=== PATIENT | male | born 1940 | race Caucasian/White ===

== ENCOUNTER 2017-09-13 03:33 | Emergency (ER) | payer MEDICARE, OTHER ==
[2017-09-13] MEDS ORDERED: Iopamidol 612 MG/ML 75 ML Bottle IVPUSH ONE (03:42)
[2017-09-13] MEDS ORDERED: Piperacillin/Tazobactam 3.375 GM in Sodium Chloride 0.9% 100 ML IV ONE (04:00)
[2017-09-13] MEDS ORDERED: Sodium Chloride 0.9% 1,000 ML IV SCH (04:15)
[2017-09-13 04:27] LABS: BASE EXCESS ARTERIAL -5 mmol/L ((-2)-(+3)); BICARBONATE,ARTERIAL 16.9 mmol/L (22-26); O2 DELIVERY DEVICE NON REBR MASK; O2 SATURATION ARTERIAL 96 % (95-100); PCO2 ARTERIAL 24 mmHg (35-45); PO2 ARTERIAL 69 mmHg (70-100)
[2017-09-13] MEDS ORDERED: Norepinephrine 4 MG in Dextrose 5% in Water 246 ML IV SCH ×2 (04:30)
--- NOTE | 2017-09-13 04:42 | EDM.PDOC ---
ED HPI GENERAL MEDICAL PROBLEM - General Chief Complaint: General Stated Complaint: IN BY AMBULANCE Time Seen by Provider: 09/13/17 03:40 Source of Information: Reports: EMS, Family History Limitations: Reports: No Limitations - History of Present Illness INITIAL COMMENTS - FREE TEXT/NARRATIVE: ED via [facility], report fever difficulty to arouse, incontinent stool. notes weak since seen in ED. Apparently had fallen out of bed to carpeted floor around 530pm and neighbor came over to assist in getting patient back to bed. - Related Data Allergies Allergy/AdvReac Type Severity Reaction Status Date / Time No Known Allergies Allergy Verified 09/13/17 04:53 Home Meds: Home Meds Amitriptyline [Elavil] 30 mg PO DAILY 09/13/17 [History] ClonazePAM [KlonoPIN] 0.5 mg PO DAILY 09/13/17 [History] Hydrochlorothiazide 25 mg PO DAILY 09/13/17 [History] Morphine Sulfate 30 mg PO BID 09/13/17 [History] atorvaSTATin [Lipitor] 20 mg PO DAILY 09/13/17 [History] Past Medical History Gastrointestinal History: Reports: Bowel Obstruction Musculoskeletal History: Reports: Back Pain, Chronic Social & Family History - Tobacco Use Smoking Status *Q: Never Smoker - Caffeine Use Caffeine Use: Reports: None - Recreational Drug Use Recreational Drug Use: No ED ROS GENERAL - Review of Systems Review Of Systems: See Below (ROS obtained from ) Constitutional: Reports: Fever, Decreased Appetite HEENT: Reports: No Symptoms Respiratory: Reports: No Symptoms Cardiovascular: Reports: No Symptoms GI/Abdominal: Reports: Constipation (Patient seen in [place] ED Friday and given Magnesium Citrate), Stool Incontinence Skin: Reports: No Symptoms Neurological: Reports: Other (altered mental status, lethargic, opens eyes to stimuli, slowed responses, speech thick. ) ED EXAM, GENERAL - Physical Exam Exam: See Below Exam Limited By: No Limitations General Appearance: Lethargic Eye Exam: Bilateral Eye: EOMI, PERRL (5) Ears: Normal External Exam, Normal TMs Nose: Normal Inspection Throat/Mouth: Other (dry) Head: Atraumatic, Normocephalic Neck: Normal Inspection. No: Tender Lateral, Tender Midline Respiratory/Chest: No Respiratory Distress, Lungs Clear Cardiovascular: Normal Peripheral Pulses, Regular Rate, Rhythm, Tachycardia GI/Abdominal: Normal Bowel Sounds, Soft, Other (incontinent large amount brown stool). No: Distended Extremities: Other (distal cool) Neurological: Slow to Respond (lethargic). No: Alert Skin Exam: Warm, Dry, Pallor Course - Vital Signs Last Recorded V/S: Last Vital Signs Temp 99.4 F 09/13/17 04:51 Pulse 123 H 09/13/17 04:51 Resp 35 H 09/13/17 04:51 BP 115/53 L 09/13/17 04:51 Pulse Ox 95 09/13/17 04:51 - Orders/Labs/Meds Orders: Active Orders 24 hr Category Date Time Status Glucose [Blood Glucose Check, Bedside] [RC] ONETIME Care 09/13/17 04:19 Active CULTURE BLOOD [BC] Stat Lab 09/13/17 04:00 Results CULTURE BLOOD [BC] Stat Lab 09/13/17 04:28 Results Blood Culture x2 Reflex Set [OM.PC] Stat Oth 09/13/17 03:38 Ordered Labs: Laboratory Tests 09/13/17 09/13/17 09/13/17 Range/Units 04:00 04:00 04:00 WBC 13.6 H (5.0-10.0) 10^3/uL RBC 5.10 (4.6-6.2) 10^6/uL Hgb 14.4 (14.0-18.0) g/dL Hct 43.6 (40.0-54.0) % MCV 85.5 (80-100) fL MCH 28.2 (27.0-34.0) pg MCHC 33.0 (33.0-35.0) g/dL Plt Count 79 L (150-450) 10^3/uL Neut % (Auto) 90.0 H (42.2-75.2) % Lymph % (Auto) 5.0 L (20.5-50.1) % [place] % (Auto) 4.8 (2-8) % Eos % (Auto) 0.1 L (1.0-3.0) % Baso % (Auto) 0.1 (0.0-1.0) % Add Manual Diff Yes Neutrophils % (Manual) 83 H (42-75) % Band Neutrophils % 8 % Lymphocytes % (Manual) 5 L (20-50) % Monocytes % (Manual) 4 (2-8) % ABG pH (7.35-7.45) ABG pCO2 (35-45) mmHg ABG pO2 (70-100) mmHg ABG HCO3 (22-26) mmol/L ABG O2 Saturation (95-100) % ABG Base Excess ((-2)-(+3)) mmol/L O2 Delivery Device Sodium 131 L (135-145) mmol/L Potassium 3.0 L (3.6-5.0) mmol/L Chloride 94 L (101-111) mmol/L Carbon Dioxide 18.0 L (21.0-31.0) mmol/L Anion Gap 22.0 BUN 37 H (7-18) mg/dL Creatinine 2.2 H (0.6-1.3) mg/dL Est Cr Clr Drug Dosing 28.57 mL/min Estimated GFR (MDRD) 29 BUN/Creatinine Ratio 16.81 Glucose 174 H (74-105) mg/dL POC Glucose (83-110) mg/dl Lactic Acid 9.0 H (0.5-2.2) mmol/L Calcium 8.5 (8.4-10.2) mg/dl Magnesium 1.7 L (1.8-2.5) mg/dL Total Bilirubin 1.3 H (0.2-1.0) mg/dL AST 77 H (10-42) IU/L ALT 32 (10-60) IU/L Alkaline Phosphatase 349 H (42-121) IU/L Troponin I 0.28 H* (0.00-0.02) ng/ml Total Protein 5.8 L (6.7-8.2) g/dl Albumin 2.7 L (3.2-5.5) g/dl Globulin 3.1 Albumin/Globulin Ratio 0.87 Amylase 21 L (28-100) U/L Lipase 6 L (22-51) U/L Urine Color (YELLOW) Urine Appearance (CLEAR) Urine pH (5.0-9.0) Ur Specific [place] (1.005-1.030) Urine Protein (NEGATIVE) Urine Glucose (UA) (NEGATIVE) Urine Ketones (NEGATIVE) Urine Occult Blood (NEGATIVE) Urine Nitrite (NEGATIVE) Urine Bilirubin (NEGATIVE) Urine Urobilinogen (0.2-1.0) mg/dL Ur Leukocyte Esterase (NEGATIVE) Urine RBC /HPF Urine WBC (0-5/HPF) /HPF Ur Epithelial Cells /HPF Amorphous Sediment (0/HPF) /HPF Urine Bacteria (0-FEW/HPF) /HPF 09/13/17 09/13/17 09/13/17 Range/Units 04:04 04:16 04:23 WBC (5.0-10.0) 10^3/uL RBC (4.6-6.2) 10^6/uL Hgb (14.0-18.0) g/dL Hct (40.0-54.0) % MCV (80-100) fL MCH (27.0-34.0) pg MCHC (33.0-35.0) g/dL Plt Count (150-450) 10^3/uL Neut % (Auto) (42.2-75.2) % Lymph % (Auto) (20.5-50.1) % [place] % (Auto) (2-8) % Eos % (Auto) (1.0-3.0) % Baso % (Auto) (0.0-1.0) % Add Manual Diff Neutrophils % (Manual) (42-75) % Band Neutrophils % % Lymphocytes % (Manual) (20-50) % Monocytes % (Manual) (2-8) % ABG pH 7.46 H (7.35-7.45) ABG pCO2 24 L (35-45) mmHg ABG pO2 69 L (70-100) mmHg ABG HCO3 16.9 L (22-26) mmol/L ABG O2 Saturation 96 (95-100) % ABG Base Excess -5 L ((-2)-(+3)) mmol/L O2 Delivery Device Non rebr mask Sodium (135-145) mmol/L Potassium (3.6-5.0) mmol/L Chloride (101-111) mmol/L Carbon Dioxide (21.0-31.0) mmol/L Anion Gap BUN (7-18) mg/dL Creatinine (0.6-1.3) mg/dL Est Cr Clr Drug Dosing mL/min Estimated GFR (MDRD) BUN/Creatinine Ratio Glucose (74-105) mg/dL POC Glucose 185 H (83-110) mg/dl Lactic Acid (0.5-2.2) mmol/L Calcium (8.4-10.2) mg/dl Magnesium (1.8-2.5) mg/dL Total Bilirubin (0.2-1.0) mg/dL AST (10-42) IU/L ALT (10-60) IU/L Alkaline Phosphatase (42-121) IU/L Troponin I (0.00-0.02) ng/ml Total Protein (6.7-8.2) g/dl Albumin (3.2-5.5) g/dl Globulin Albumin/Globulin Ratio Amylase (28-100) U/L Lipase (22-51) U/L Urine Color Dark yellow (YELLOW) Urine Appearance Cloudy (CLEAR) Urine pH 5.0 (5.0-9.0) Ur Specific [place] 1.020 (1.005-1.030) Urine Protein >=300 H (NEGATIVE) Urine Glucose (UA) 250 H (NEGATIVE) Urine Ketones Trace H (NEGATIVE) Urine Occult Blood Moderate H (NEGATIVE) Urine Nitrite Negative (NEGATIVE) Urine Bilirubin Small H (NEGATIVE) Urine Urobilinogen 1.0 (0.2-1.0) mg/dL Ur Leukocyte Esterase Negative (NEGATIVE) Urine RBC 5-10 H /HPF Urine WBC 0-5 (0-5/HPF) /HPF Ur Epithelial Cells Rare /HPF Amorphous Sediment Moderate (0/HPF) /HPF Urine Bacteria Few (0-FEW/HPF) /HPF Meds: Medications Discontinued Medications Generic Name Dose Route Start Last Admin Trade Name Freq PRN Reason Stop Dose Admin Piperacillin Sod/Tazobactam 100 mls @ 200 mls/hr 09/13/17 04:00 09/13/17 04: 26 Sod 3.375 gm/ Sodium Chloride IV 09/13/17 04:29 200 mls/hr ONETIME ONE Administration Sodium Chloride 1,000 mls @ 999 mls/hr 09/13/17 04:15 09/13/17 04:25 Normal Saline IV 09/17/17 04:18 999 mls/hr ASDIRECTED PINA Administration Norepinephrine Bitartrate 4 mg 250 mls @ 7.5 mls/hr 09/13/17 04:30 / Dextrose/Water IV TITRATE PINA Protocol 2 MCG/MIN Iopamidol 75 ml 09/13/17 03:42 Isovue-300 (61%) IVPUSH 09/13/17 03:43 ONETIME ONE - Re-Assessments/Exams Free Text/Narrative Re-Assessment/Exam: 09/14/17 04:04 Increased arousal with fluids, talking. Hypotension improving also with fluids, Shallow respiration. O@ saturation improved with ear probe. O2 able to decrease to nasal cannula mainaining greather than 94% on 4L [facility], accepting of patient in transfer . [facility] here. Free Text/Narrative Re-Assessment/Exam: 09/13/17 05:22 Patient awake talking, looking around room, tracking. States "feeling better" . Packaged for transfer via [facility]. O@ at 4l/NC sats 96%. BP 99 systolic. Patient status improved at time of tx. . Departure - Departure Time of Disposition: 05:39 Disposition: DC/Tfer to Acute Hospital 02 Condition: Critical Clinical Impression: Sepsis Pneumonia Qualifiers: Pneumonia type: due to unspecified organism Laterality: right Lung location: lower lobe of lung Qualified Code(s): J18.1 - Lobar pneumonia, unspecified organism - Discharge Information Referrals: Aracelis Majano, [facility] [Primary Care Provider] - Forms: ED Department Discharge - My Orders Last 24 Hours: My Active Orders 09/13/17 03:38 Blood Culture x2 Reflex Set [OM.PC] Stat 09/13/17 04:00 CULTURE BLOOD [BC] Stat 09/13/17 04:19 Glucose [Blood Glucose Check, Bedside] [RC] ONETIME 09/13/17 04:28 CULTURE BLOOD [BC] Stat - Assessment/Plan Last 24 Hours: My Active Orders 09/13/17 03:38 Blood Culture x2 Reflex Set [OM.PC] Stat 09/13/17 04:00 CULTURE BLOOD [BC] Stat 09/13/17 04:19 Glucose [Blood Glucose Check, Bedside] [RC] ONETIME 09/13/17 04:28 CULTURE BLOOD [BC] Stat
== END 2017-09-13 05:36 ==
LOC: DL.ED 03:33
DX: A41.9 Sepsis, unspecified organism (principal); J18.9 Pneumonia, unspecified organism; Z79.899 Other long term (current) drug therapy
CPT/HCPCS: 36415; 36600; 71045; 80053; 81001; 82150; 82272; 82803; 82962; 83605; 83690; 83735; 84484; 85025; 87040; 96365; 99285; J2543; J7030; J7050; 87077; 87186

== ENCOUNTER 2021-02-07 08:16 | Day surgery (SDC) | payer MEDICARE, OTHER ==
[2021-02-07] MEDS ORDERED: Midazolam 1 MG/ML 2 ML SDV IV ONE (08:17)
[2021-02-07] MEDS ORDERED: Dexamethasone 4 MG/ML SDV IV ONE (08:17)
[2021-02-07] MEDS ORDERED: Sodium Chloride 0.9% 10 ML Syringe IV ONE (08:17)
[2021-02-07] MEDS ORDERED: Acetaminophen 325 MG Tab PO PRN (08:30)
[2021-02-07] MEDS ORDERED: Ondansetron 4 MG/2 ML SDV IVPUSH PRN (08:30)
[2021-02-07] MEDS ORDERED: Acetaminophen/Codeine 300-30 MG Tab PO PRN (08:30)
[2021-02-07] MEDS: Proparacaine 0.5% Ophth Soln 15 ML Bottle EYELF ONE (08:50)
[2021-02-07] MEDS: Povidone-Iodine 5% Sterile Ophth Soln 30 ML Bottle EYELF ONE ×2 (08:51→09:42)
[2021-02-07] MEDS: Moxifloxacin 0.5% Ophth Soln 3 ML Bottle EYELF ONE (08:52)
[2021-02-07] MEDS: Tropicamide 1% Ophth Soln 15 ML Bottle EYELF ONE (08:53)
[2021-02-07] MEDS: Phenylephrine 10% Ophth Soln 5 ML Bot EYELF ONE (08:53)
[2021-02-07] MEDS: Timolol Maleate 0.5% Ophth Soln 5 ML Bottle EYELF ONE (08:54)
[2021-02-07] MEDS: Cataract Ophth Solution EYELF ONE (08:55)
[2021-02-07] MEDS: Sodium Chloride 0.9% 10 ML Syringe FLUSH PRN (09:18)
[2021-02-07] MEDS: Tetracaine HCl/PF 0.5% 4 ML Bottle EYELF ONE (09:41)
[2021-02-07] MEDS: Lidocaine 1% 30 ML SDV ONE (09:41)
[2021-02-07] MEDS: Dexamethasone/Neomycin/Polymyxin B Ophth Oint 3.5 GM Tube EYELF ONE (09:42)
[2021-02-07] MEDS: Apraclonidine 0.5% Ophth Soln 5 ML Bot EYELF ONE (09:42)
[2021-02-07] MEDS: Chondroitin Sulfate/Hyaluronate Sodium Ophth Inj 0.75 ML Syringe EYELF ONE (09:42)
[2021-02-07] MEDS: Balanced Salt Solution Ophth Irrig 500 ML Bottle IOCULAR ONE (09:42)
[2021-02-07] MEDS: Diclofenac Sodium 0.1% Ophth Soln 5 ML Bottle EYELF ONE (09:42)
[2021-02-07] MEDS: Vancomycin 500 MG SDV EYELF ONE (09:43)
--- NOTE | 2021-02-07 13:38 | OR ---
DATE: 02/07/2021 PREOPERATIVE DIAGNOSIS: Visually significant mixed cataract, left eye. POSTOPERATIVE DIAGNOSIS: Visually significant mixed cataract, left eye. PROCEDURE: Extracapsular cataract extraction with intraocular lens implant, left eye. ANESTHESIA: Topical/local MAC. COMPLICATIONS: None. INDICATION: Mr. Xiong was seen in the clinic. He has complained of a slow progressive decrease in vision. The examination revealed visually significant mixed cataract. I explained options, offered cataract surgery, and I explained risks, including, but not limited to, infection; retinal detachment; loss of vision; need for additional surgery; and risks associated with anesthesia amongst others. We discussed implant options. He has requested a monofocal implant. He is comfortable wearing glasses following surgery if necessary. Voiced understanding with respect to risks, limitations, and wished to proceed. OPERATIVE DESCRIPTION: After informed consent was obtained and the risks, benefits, and alternatives were explained, the patient was brought to the operative suite and topical anesthesia was administered. The patient was then prepped and draped in the sterile fashion and attention was placed on the left eye. A sterile lid speculum was placed into the left eye to allow operative exposure. A full-thickness paracentesis was made in the temporal portion of the operative eye. Preservative-free lidocaine 0.1 mL was injected into the anterior chamber followed by viscoelastic. A full-thickness corneal incision was then made into the anterior chamber. A bent needle cystotome was used to create a small eleazar in the anterior capsule. The capsulorrhexis forceps was then used to create a 360-degree curvilinear capsulorrhexis. The nucleus was then removed using a phacoemulsification handpiece and the remaining cortical material was then removed with irrigation and aspiration handpiece. Following removal of the cortical material, the capsular bag was then inspected and noted to be free of any holes or tears. Viscoelastic was then injected into the capsular bag and the intraocular lens was inserted into the capsular bag. The viscoelastic material was then removed from both the anterior and posterior chambers and from behind the IOL. The lens and capsular bag were then reinspected. The IOL was well centered and the capsular bag intact. The wound and paracentesis sites were inspected and hydrated with balanced saline solution. Both were found to be self- sealing. The intraocular pressure was assessed digitally and found to be within normal range. A good red reflex was noted at the completion of the procedure. No complications occurred during the operation. At the completion of the procedure, Maxitrol, Voltaren, and Iopidine drops were placed into the operative eye. A sterile eye shield was placed over the operative eye and the patient was transported to the postoperative recovery area having tolerated the procedure well. Postoperative instructions were given along with a postoperative appointment. The patient was advised to call with any questions or concerns. [facility] /[id number]
== END 2021-02-07 10:50 | disposition home or self-care (01) ==
LOC: DL.SDS 08:16
PROVIDERS: ATTEND Ophthalmology
DX: H26.8 Other specified cataract (principal); I10 Essential (primary) hypertension; E78.2 Mixed hyperlipidemia; G25.81 Restless legs syndrome; M54.9 Dorsalgia, unspecified; G89.29 Other chronic pain; F32.9 Major depressive disorder, single episode, unspecified; F43.21 Adjustment disorder with depressed mood; E83.42 Hypomagnesemia; E66.9 Obesity, unspecified; Z68.28 Body mass index [BMI] 28.0-28.9, adult; Z79.891 Long term (current) use of opiate analgesic
CPT/HCPCS: 00142; A9270-GY; J1100; J2250; J3370; V2632

== ENCOUNTER 2021-02-14 06:30 | Day surgery (SDC) | payer MEDICARE, OTHER ==
[~2021-02-14 06:30] MED LIST: Acetaminophen 325 MG Tab PO PRN; Acetaminophen/Codeine 300-30 MG Tab PO PRN; Cataract Ophth Solution EYERT ONE; Moxifloxacin 0.5% Ophth Soln 3 ML Bottle EYERT ONE; Ondansetron 4 MG/2 ML SDV IVPUSH PRN; Phenylephrine 10% Ophth Soln 5 ML Bot EYERT ONE; Povidone-Iodine 5% Sterile Ophth Soln 30 ML Bottle EYERT ONE; Proparacaine 0.5% Ophth Soln 15 ML Bottle EYERT ONE; Sodium Chloride 0.9% 10 ML Syringe FLUSH PRN; Timolol Maleate 0.5% Ophth Soln 5 ML Bottle EYERT ONE; Tropicamide 1% Ophth Soln 15 ML Bottle EYERT ONE
[2021-02-14] MEDS ORDERED: Sodium Chloride 0.9% 10 ML Syringe IV ONE (06:31)
[2021-02-14] MEDS ORDERED: Midazolam 1 MG/ML 2 ML SDV IV ONE (06:31)
[2021-02-14] MEDS ORDERED: Dexamethasone 4 MG/ML SDV IV ONE (06:31)
[2021-02-14] MEDS ORDERED: Lidocaine 1% 30 ML SDV ONE (08:08)
[2021-02-14] MEDS ORDERED: Tetracaine HCl/PF 0.5% 4 ML Bottle EYERT ONE (08:08)
[2021-02-14] MEDS ORDERED: Dexamethasone/Neomycin/Polymyxin B Ophth Oint 3.5 GM Tube EYERT ONE (08:09)
[2021-02-14] MEDS ORDERED: Vancomycin 500 MG SDV EYERT ONE (08:09)
[2021-02-14] MEDS ORDERED: Diclofenac Sodium 0.1% Ophth Soln 5 ML Bottle EYERT ONE (08:09)
[2021-02-14] MEDS ORDERED: Apraclonidine 0.5% Ophth Soln 5 ML Bot EYERT ONE (08:09)
[2021-02-14] MEDS ORDERED: Povidone-Iodine 5% Sterile Ophth Soln 30 ML Bottle EYERT ONE (08:09)
[2021-02-14] MEDS ORDERED: Balanced Salt Solution Ophth Irrig 500 ML Bottle IOCULAR ONE (08:09)
[2021-02-14] MEDS ORDERED: Chondroitin Sulfate/Hyaluronate Sodium Ophth Inj 0.75 ML Syringe EYERT ONE (08:10)
--- NOTE | 2021-02-14 09:19 | OR ---
DATE: 02/14/2021 PREOPERATIVE DIAGNOSIS: Visually significant mixed cataract, right eye. POSTOPERATIVE DIAGNOSIS: Visually significant mixed cataract, right eye. PROCEDURE: Extracapsular cataract extraction with intraocular lens implant, right eye. ANESTHESIA: Topical/local MAC. COMPLICATIONS: None. INDICATION: Mr. Xiong was seen in the clinic. He is unhappy with his vision, noticing a progressive change. He saw his regular breadman, Dr. Lopez. Dr. Lopez was not able to improve his vision with the change in glasses. He has difficulty reading, difficulty seeing small print. Examination reveals mixed cataract. I explained the options, offered cataract surgery, and I explained the risks, including, but not limited to, infection; retinal detachment; loss of vision; need for additional surgery; and risks associated with anesthesia. We discussed implant options. He has requested a monofocal implant. I did explain that he may still require glasses for some activities, especially near work. He voiced understanding and wished to proceed. OPERATIVE DESCRIPTION: After informed consent was obtained and the risks, benefits, and alternatives were explained, the patient was brought to the operative suite and topical anesthesia was administered. The patient was then prepped and draped in the sterile fashion and attention was placed on the right eye. A sterile lid speculum was placed into the right eye to allow operative exposure. A full-thickness paracentesis was made in the temporal portion of the operative eye. Preservative-free lidocaine 0.1 mL was injected into the anterior chamber followed by viscoelastic. A full-thickness corneal incision was then made into the anterior chamber. A bent needle cystotome was used to create a small eleazar in the anterior capsule. The capsulorrhexis forceps was then used to create a 360-degree curvilinear capsulorrhexis. The nucleus was then removed using a phacoemulsification handpiece and the remaining cortical material was then removed with irrigation and aspiration handpiece. Following removal of the cortical material, the capsular bag was then inspected and noted to be free of any holes or tears. Viscoelastic was then injected into the capsular bag and the intraocular lens was inserted into the capsular bag. The viscoelastic material was then removed from both the anterior and posterior chambers and from behind the IOL. The lens and capsular bag were then reinspected. The IOL was well centered and the capsular bag intact. The wound and paracentesis sites were inspected and hydrated with balanced saline solution. Both were found to be self- sealing. The intraocular pressure was assessed digitally and found to be within normal range. A good red reflex was noted at the completion of the procedure. No complications occurred during the operation. At the completion of the procedure, Maxitrol, Voltaren, and Iopidine drops were placed into the operative eye. A sterile eye shield was placed over the operative eye and the patient was transported to the postoperative recovery area having tolerated the procedure well. Postoperative instructions were given along with a postoperative appointment. The patient was advised to call with any questions or concerns. [facility] /[id number]
== END 2021-02-14 09:15 | disposition home or self-care (01) ==
LOC: DL.SDS 06:30
PROVIDERS: ATTEND Ophthalmology
DX: H26.8 Other specified cataract (principal); G89.29 Other chronic pain; M54.5 Low back pain; E78.2 Mixed hyperlipidemia; E83.42 Hypomagnesemia; G47.00 Insomnia, unspecified; G25.81 Restless legs syndrome; F32.9 Major depressive disorder, single episode, unspecified; F43.21 Adjustment disorder with depressed mood; Z79.891 Long term (current) use of opiate analgesic; Z87.891 Personal history of nicotine dependence
CPT/HCPCS: 00142; A9270-GY; J1100; J2250; J3370; V2632

== ENCOUNTER 2024-03-11 17:49 | Inpatient (IN) | payer MEDICARE, OTHER ==
[2024-03-11] MEDS: Iopamidol 612 MG/ML 100 ML Bottle IVPUSH ONE (18:05)
[2024-03-11] MEDS: Ondansetron 4 MG/2 ML SDV IVPUSH ONE (18:43)
[2024-03-11] MEDS: Sodium Chloride 0.9% 1,000 ML IV ONE (18:43)
[2024-03-11 19:28] LABS: LACTIC ACID 1.6 mmol/L (0.4-2.0); MAGNESIUM 1.5 mg/dL (1.8-2.4)
[2024-03-11 19:54] LABS: APPEARANCE,URINE CLEAR (CLEAR); BILIRUBIN,URINE NEGATIVE (NEGATIVE); COLOR,URINE YELLOW (YELLOW); GLUCOSE,URINE 100 (NEGATIVE); KETONES,URINE 15 (NEGATIVE); LEUKOCYTE ESTERASE,URINE NEGATIVE (NEGATIVE); NITRITE,URINE NEGATIVE (NEGATIVE); OCCULT BLOOD,URINE NEGATIVE (NEGATIVE); PH,URINE 7.5 (5.0-9.0); PROTEIN,URINE 30 (NEGATIVE); UROBILINOGEN,URINE 0.2 mg/dL (0.2-1.0)
[2024-03-11] MEDS: Metoclopramide 10 MG/2 ML SDV IVPUSH ONE (20:00)
[2024-03-11 20:05] LABS: BACTERIA,URINE FEW /HPF (0-FEW/HPF); EPITHELIAL CELLS,URINE RARE /HPF (NOT SEEN); MUCUS,URINE FEW /LPF (NOT SEEN); RBC,URINE 0-5 /HPF (0-5); WBC,URINE 0-5 /HPF (0-5/HPF)
[2024-03-11] MEDS: Morphine 4 MG/ML Syringe IVPUSH PRN (20:57)
[2024-03-11] MEDS: Dextrose 5%-0.9% NaCl 1,000 ML IV SCH (21:05)
[2024-03-11] MEDS ORDERED: Docusate Sodium 100 MG Cap PO PRN (21:13)
[2024-03-11] MEDS ORDERED: hydrALAZINE 20 MG/ML SDV IVPUSH PRN (21:17)
[2024-03-11] MEDS: Pantoprazole 40 MG Vial IVPUSH SCH (21:44)
[2024-03-11] MEDS: Morphine 2 MG/ML SYRINGE IVPUSH PRN (21:44)
[2024-03-11 21:48] LABS: HEMATOCRIT 40.4 % (40.0-54.0); HEMOGLOBIN 13.3 g/dL (14.0-18.0); MEAN CORPUSCULAR HEMOGLOBIN 28.7 pg (27.0-34.0); MEAN CORPUSCULAR HGB CONC 32.9 g/dL (33.0-35.0); MEAN CORPUSCULAR VOLUME 87.3 fL (80-100); RED BLOOD CELL COUNT 4.63 10^6/uL (4.6-6.2); WHITE BLOOD CELL COUNT,WBC 22.8 10^3/uL (5.0-10.0)
[2024-03-11 22:02] LABS: ANION GAP 9.8 mEq/L (7-13); CALCIUM 8.7 mg/dL (8.5-10.1); CREATININE 0.8 mg/dL (0.70-1.30); EST CRCL DRUG DOSING (CG) 64.21 mL/min; POTASSIUM,K 2.8 mmol/L (3.5-5.1)
[2024-03-11] MEDS: diphenhydrAMINE 50 MG/ML SDV IM PRN (22:41)
[2024-03-12] MEDS: HYDROmorphone 1 MG/ML Syringe IVPUSH PRN (00:05)
[2024-03-12] MEDS: oxyCODONE 5 MG Tab PO PRN (00:26)
[2024-03-12] MEDS: Enoxaparin 40 MG/0.4 ML Syringe SUBCUT SCH (09:14)
[2024-03-12] MEDS: Ondansetron 4 MG/2 ML SDV IVPUSH PRN (13:47)
[2024-03-12] MEDS: diphenhydrAMINE 25 MG Tab PO PRN (21:46)
[2024-03-13] MEDS: Hydrochlorothiazide 25 MG Tab PO SCH (08:47)
[2024-03-13 16:36] LABS: HEMATOCRIT 38.1 % (40.0-54.0); HEMOGLOBIN 12.5 g/dL (14.0-18.0); MEAN CORPUSCULAR HEMOGLOBIN 28.9 pg (27.0-34.0); MEAN CORPUSCULAR HGB CONC 32.8 g/dL (33.0-35.0); RED BLOOD CELL COUNT 4.33 10^6/uL (4.6-6.2); WHITE BLOOD CELL COUNT,WBC 15.6 10^3/uL (5.0-10.0)
[2024-03-13 16:51] LABS: EST CRCL DRUG DOSING (CG) 51.37 mL/min
[2024-03-13] MEDS: HYDROmorphone 2 MG Tab PO PRN (19:03)
[2024-03-13] MEDS: Potassium Chloride 10 MEQ Tab.ER PO ONE (21:09)
[2024-03-14 12:55] LABS: HEMATOCRIT 36.1 % (40.0-54.0); HEMOGLOBIN 12.1 g/dL (14.0-18.0); MEAN CORPUSCULAR HGB CONC 33.5 g/dL (33.0-35.0); MEAN CORPUSCULAR VOLUME 86.6 fL (80-100); RED BLOOD CELL COUNT 4.17 10^6/uL (4.6-6.2); WHITE BLOOD CELL COUNT,WBC 12.2 10^3/uL (5.0-10.0)
[2024-03-14 13:08] LABS: ANION GAP 11.7 mEq/L (7-13); CALCIUM 8.6 mg/dL (8.5-10.1); CREATININE 0.92 mg/dL (0.70-1.30); EST CRCL DRUG DOSING (CG) 55.84 mL/min; POTASSIUM,K 2.7 mmol/L (3.5-5.1)
[2024-03-14] MEDS: Potassium Chloride 20 MEQ in Premix Bag 1 BAG IV ONE (16:29)
[2024-03-14] MEDS: Potassium Chloride 10 MEQ Tab.ER PO ONE (16:30)
[2024-03-14] MEDS: Magnesium Sulfate/Water 4 GM in Premix Bag 1 BAG IV ONE (19:50)
[2024-03-15 13:18] LABS: CALCIUM 9.2 mg/dL (8.5-10.1); CREATININE 0.95 mg/dL (0.70-1.30); EST CRCL DRUG DOSING (CG) 54.08 mL/min
== END 2024-03-15 18:00 | disposition home or self-care (01) | DRG 440 ==
LOC: DL.ED 17:49 → DL.MS 20:33 → OBSVTOIN 03-12 15:15
PROVIDERS: ADMIT Internal Medicine; ATTEND Internal Medicine
DX: K85.00 Idiopathic acute pancreatitis without necrosis or infection (principal); I10 Essential (primary) hypertension; E78.00 Pure hypercholesterolemia, unspecified; G89.29 Other chronic pain; M54.9 Dorsalgia, unspecified; G47.00 Insomnia, unspecified; G25.81 Restless legs syndrome; E87.6 Hypokalemia; E83.42 Hypomagnesemia; Z98.49 Cataract extraction status, unspecified eye; Z90.49 Acquired absence of other specified parts of digestive tract; Z79.899 Other long term (current) drug therapy; Z98.890 Other specified postprocedural states
CPT/HCPCS: 36415 ×2; 71045; 74177; 80048; 81001; 83605; 83690 ×2; 83735; 84484; 85027; 93005; 93010; 96361; 96372 ×2; 96374; 96375 ×3; 96376 ×2; 99285 ×2; A9270; G0378 ×3; J1170 ×5; J1200; J1650; J2270 ×2; J2405 ×2; J2470 ×2; J2765; J7030; J7042; Q9967; U0002; 99223; 99233; 99239; J3475; J3480